=== PATIENT | female | born 1940 | race Caucasian/White ===

== ENCOUNTER 2017-06-30 10:14 | Observation (INO) | payer MEDICARE, OTHER ==
[2017-06-30] MEDS ORDERED: NS 0.9% 1000 ML* 1,000 ML IV ONE (10:50)
[2017-06-30 11:01] LABS: Hematocrit 38 % (35-47); Hemoglobin 12.8 g/dl (12.0-16.0); Mean Corpuscular HGB Conc 34 g/dl (31-36); Mean Corpuscular Hemoglobin 29 pg (27-31); Mean Corpuscular Volume 87 fL (80-97); Mean Platelet Volume 7 um3 (7.4-10.4); Red Blood Count 4.35 10^6/ul (4.0-5.4); Red Cell Distribution Width 16 % (10.5-15); White Blood Count 5.5 10^3/ul (3.5-10.8)
[2017-06-30 11:15] LABS: Albumin 3.9 g/dL (3.2-5.2); BUN/Creatinine Ratio 24.6 (8-20); Calcium 10.2 mg/dL (8.6-10.3); EGFR African American 113.7 (>60); EGFR Non-African American 88.4 (>60); Globulin 2.6 g/dL (2-4); Magnesium 1.9 mg/dL (1.9-2.7); Potassium 3.1 mmol/L (3.5-5.0); Total Bilirubin 0.6 mg/dL (0.2-1.0); Total Protein 6.5 g/dL (6.4-8.9)
[2017-06-30 11:16] LABS: Troponin I 0.01 ng/mL (<0.04)
[2017-06-30 11:49] LABS: TSH (Thyroid Stimulating Horm) 0.57 mcIU/mL (0.34-5.60)
[2017-06-30] MEDS ORDERED: Potassium Chlor TAB* 20 MEQ TAB.ER PO ONE (11:50)
--- NOTE | 2017-06-30 11:50 | RAD ---
Indication: Fall, head injury. Syncopal episode. Comparison: No relevant prior exams available on the [facility] PACS for comparison. Technique: Noncontrast CT vertex of skull through foramen magnum. Report: Mild prominence of the cerebral sulci and cerebellar fissures reflecting involutional change. Unremarkable ventricles and basal cisterns. Negative for [place] matter white matter obscuration, intra or extra-axial hemorrhage, or mass effect. Unremarkable orbital contents. Negative for calvarial or skull base fracture or suspicious focal osseous lesion. Clear visualized paranasal sinuses and mastoid air spaces. Mild edema at the LEFT posterolateral scalp without significant loculated scalp hematoma. IMPRESSION: 1. No CT evidence for traumatic brain injury or acute intracranial process. 2. Mild LEFT posterior lateral scalp swelling without significant loculated hematoma. 3. Mild involutional change.
--- NOTE | 2017-06-30 11:56 | RAD ---
Indication: Fall with head injury. Dizziness. Comparison: No relevant prior exams available on the [facility] PACS for comparison. Technique: Sitting AP and lateral chest views. Report: Costochondral calcifications noted. Elevated lung volumes and both diffuse mild prominence of the interstitial markings and patchy rarefaction of the mid to upper lung zone interstitial markings. No focal pulmonary lesion, compelling alveolar consolidation, pleural effusion, pneumothorax. Mild bilateral diaphragmatic eventration. The heart, pulmonary vasculature, and mediastinal contours are unremarkable. No thoracic fractures evident. IMPRESSION: Stigmata of potential obstructive lung disease. No acute pulmonary or cardiac process evident.
[2017-06-30] MEDS ORDERED: Ondansetron INJ* 2 MG/ML VIAL IV PRN (13:41)
[2017-06-30] MEDS ORDERED: NS 0.9% 1000 ML* 1,000 ML IV SCH (13:45)
--- NOTE | 2017-06-30 14:25 | RAD ---
INDICATION: Fall. COMPARISON: No relevant prior exams available on the [facility] PACS for comparison. TECHNIQUE: Multidetector CT images foramen magnum to lung apices without contrast. Multiplanar reformation. REPORT: 3 mm degenerative C4-C5 anterolisthesis. Negative for facet subluxation at any level. Negative for paravertebral hematoma. Negative for vertebral body or posterior element fracture. 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 Disc space narrowing is advanced from C4-C5 through C6-C7. Facet joint ankylosis at C4-C5 bilaterally. IMPRESSION: Negative for traumatic cervical spine injury.
--- NOTE | 2017-06-30 14:45 | RAD ---
INDICATION: Fall. Loss of consciousness. Hematoma at the LEFT hip/thigh. COMPARISON: No relevant prior exams available on the [facility] [place] for comparison. TECHNIQUE: Multidetector CT images were obtained from the lung bases to the ischial tuberosities. Evaluation of the viscera is limited without IV contrast. Multiplanar reformation. REPORT: Low suspicion 3 mm subpleural nodule at the lateral basal segment of the LEFT lower lobe. Negative for pleural effusions. Post cholecystectomy. Negative for biliary dilatation or focal hepatic lesions. Unremarkable pancreas and spleen. Negative for CT abnormality of the upper GI or small bowel. While the appendix is not discretely visualized, there is no inflammatory change in the right lower quadrant or region of the tip of the cecum to suggest presence of an acute inflammatory process. Moderately severe diverticulosis of the sigmoid colon without findings of diverticulitis. Negative for ascites, free air, or significant hernias. Normal adrenal glands. Negative for nephrolithiasis or hydronephrosis. Unremarkable nondilated ureters and moderately distended urinary bladder. Calcified fibroids at the uterus. Unremarkable adnexal regions. Negative for lymphadenopathy. Mild atherosclerotic calcification of normal diameter abdominal aorta and iliac arteries. Physiologic partial distention of the IVC. LEFT posterior lateral thigh loculated subcutaneous tissue plane hematoma measuring up to 4.6 x 6.4 by 5.1 cm. Surrounding infiltrative hematoma/edema. Resulting mild mass effect on the subjacent skeletal musculature. No additional soft tissue plane hematoma evident. Negative for lumbar sacral spine, pelvis, or proximal femur fracture. 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 Grade 1 degenerative L4-L5 anterolisthesis. Associated mild to moderate acquired central canal stenosis at L2-L3, moderate acquired central canal stenosis at L3-L4, and moderately severe acquired central canal stenosis at L4-L5. IMPRESSION: 1. No abdominal pelvic visceral injury within limits of noncontrast CT. 2. LEFT posterior lateral thigh loculated subcutaneous tissue plane hematoma measuring up to 4.6 x 6.4 by 5.1 cm. Surrounding infiltrative hematoma/edema. Resulting mild mass effect on the subjacent skeletal musculature. 3. Negative for lumbar sacral spine, pelvis, or proximal femur fracture.
[2017-06-30 15:54] LABS: Urine Bacteria Absent (Absent); Urine Bilirubin Negative (Negative); Urine Glucose Negative (Negative); Urine Nitrite Negative (Negative)
--- NOTE | 2017-06-30 17:09 | ED ---
IIsiah Tecjoon, scribed for Ramin Major MD on 06/30/17 at 1709 . Adult Trauma - HPI Summary HPI Summary: This patient is a 77 year old female presenting to [facility] accompanied by with a chief complaint of mechanical fall from "last 4-5 steps" in a set of stairs at approximately 1015 this morning. Pt reportedly hit head on fall. The patient rates the pain 0/10 in severity. Symptoms aggravated and alleviated by nothing. Patient reports LOC (about 3 minutes) s/p fall, confusion , dizziness, and lightheadedness. Patient denies CP, ENCISO, blurred vision, palpitations, SOB. Pt also denies diarrhea and constipation. Pts denies diaphoresis. - History of Current Complaint Hx Obtained From: Patient, Family/Pe Electrical Engineer - Mechanism of Injury: Fall - From "last 4-5 steps of stairs" Loss of Consciousness: dazed Onset/Duration: Started Hours Ago Current Severity: None Pain Intensity: 0 Pain Scale Used: 0-10 Numeric Location: Head Associated Signs & Symptoms: Negative: SOB, Chest Pain <Mateo Joyce - Last Filed: 06/30/17 12:18> - HPI Summary HPI Summary: This patient is a 77 year old female presenting to [facility] accompanied by with a chief complaint of mechanical fall from "last 4-5 steps" in a set of stairs at approximately 1015 this morning. Pt reportedly hit head on fall. The patient rates the pain 0/10 in severity. Symptoms aggravated and alleviated by nothing. Patient reports LOC (about 3 minutes) s/p fall, confusion , dizziness, and lightheadedness. Patient denies CP, ENCISO, blurred vision, palpitations, SOB. Pt also denies diarrhea and constipation. Pts denies diaphoresis. - History of Current Complaint Hx Obtained From: Patient, Family/Pe Electrical Engineer - Mechanism of Injury: Fall - From "last 4-5 steps of stairs" Loss of Consciousness: dazed Onset/Duration: Started Hours Ago Current Severity: None Pain Intensity: 0 Pain Scale Used: 0-10 Numeric Location: Head Associated Signs & Symptoms: Negative: SOB, Chest Pain <Ramin Major - Last Filed: 06/30/17 17:09> - History of Current Complaint Chief Complaint: EDGeneral Stated Complaint: FALL/HEAD INJURY Time Seen by Provider: 06/30/17 10:36 - Allergy/Home Medications Allergies/Adverse Reactions: Allergies Allergy/AdvReac Type Severity Reaction Status Date / Time No Known Allergies Allergy Verified 09/20/15 06:56 PMH/Surg Hx/FS Hx/Imm Hx Previously Healthy: No Endocrine/Hematology History: Reports: Hx Thyroid Disease Cardiovascular History: Reports: Hx Hypertension Denies: Hx Pacemaker/ICD, Other Cardiovascular Problems/Disorders Respiratory History: Denies: Other Respiratory Problems/Disorders GI History: Denies: Other GI Disorders Musculoskeletal History: 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, HANDS Denies: Other Musculoskeletal History Sensory History: Reports: Hx Cataracts - BILATERAL, Hx Contacts or Glasses - GLASSES Denies: Hx Hearing Aid Opthamlomology History: Reports: Hx Cataracts - BILATERAL, Hx Contacts or Glasses - GLASSES Psychiatric History: Denies: Hx Panic Disorder - Cancer History Hx Chemotherapy: No Hx Radiation Therapy: No - Surgical History Surgery Procedure, Year, and Place: [id number]; cataracts bilat; hammertoe right foot Hx Anesthesia Reactions: No Infectious Disease History: No Infectious Disease History: Reports: Traveled Outside the [place] in Last 30 Days - Family History Known Family History: Positive: Seizure Disorder Negative: Diabetes - Social History Alcohol Use: Weekly Alcohol Amount: 2-3 GLASSES OF WINE PER WEEK Substance Use Type: Reports: None Smoking Status (MU): Never Smoked Tobacco Have You Smoked in the Last Year: No <Mateo Joyce - Last Filed: 06/30/17 12:18> Previously Healthy: No Endocrine/Hematology History: Reports: Hx Thyroid Disease Cardiovascular History: Reports: Hx Hypertension Denies: Hx Pacemaker/ICD, Other Cardiovascular Problems/Disorders Respiratory History: Denies: Other Respiratory Problems/Disorders GI History: Denies: Other GI Disorders Musculoskeletal History: 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, HANDS Denies: Other Musculoskeletal History Sensory History: Reports: Hx Cataracts - BILATERAL, Hx Contacts or Glasses - GLASSES Denies: Hx Hearing Aid Opthamlomology History: Reports: Hx Cataracts - BILATERAL, Hx Contacts or Glasses - GLASSES Psychiatric History: Denies: Hx Panic Disorder - Cancer History Hx Chemotherapy: No Hx Radiation Therapy: No - Surgical History Surgery Procedure, Year, and Place: [id number]; cataracts bilat; hammertoe right foot Hx Anesthesia Reactions: No Infectious Disease History: No Infectious Disease History: Reports: Traveled Outside the [place] in Last 30 Days - Family History Known Family History: Positive: Seizure Disorder Negative: Diabetes - Social History Alcohol Use: Weekly Alcohol Amount: 2-3 GLASSES OF WINE PER WEEK Substance Use Type: Reports: None Smoking Status (MU): Never Smoked Tobacco Have You Smoked in the Last Year: No <Ramin Major - Last Filed: 06/30/17 17:09> Review of Systems Negative: Skin Diaphoresis Negative: Blurred Vision Negative: Palpitations, Chest Pain Negative: Shortness Of Breath Positive: Other. Negative: Diarrhea Positive: other - neg: constipation Neurological: Other - Dizziness, Lightheadedness, LOC s/p fall Negative: Headache All Other Systems Reviewed And Are Negative: Yes <Mateo Joyce - Last Filed: 06/30/17 12:18> Negative: Skin Diaphoresis Negative: Blurred Vision Negative: Palpitations, Chest Pain Negative: Shortness Of Breath Positive: Other. Negative: Diarrhea Positive: other - neg: constipation Neurological: Other - Dizziness, Lightheadedness, LOC s/p fall Negative: Headache All Other Systems Reviewed And Are Negative: Yes <Ramin Major - Last Filed: 06/30/17 17:09> Physical Exam - Summary Physical Exam Summary: VITAL SIGNS: Reviewed. GENERAL: Patient is a well-developed and nourished (MALE OR FEMALE) who is lying comfortable in the stretcher. Patient is not in any acute respiratory distress. HEAD AND FACE: No signs of trauma. No ecchymosis, hematomas or skull depressions. No sinus tenderness. EYES: PERRLA, EOMI x 2, No injected conjunctiva, no nystagmus. EARS: Hearing grossly intact. Ear canals and tympanic membranes are within normal limits. MOUTH: Oropharynx within normal limits. NECK: Supple, trachea is midline, no adenopathy, no JVD, no carotid bruit, no c- spine tenderness, neck with full ROM. CHEST: Symmetric, no tenderness at palpation LUNGS: Clear to auscultation bilaterally. No wheezing or crackles. CVS: Regular rate and rhythm, S1 and S2 present, no murmurs or gallops appreciated. ABDOMEN: Soft, non-tender. No signs of distention. No rebound no guarding, and no masses palpated. Bowel sounds are normal. EXTREMITIES: FROM in all major joints, no edema, no cyanosis or clubbing. NEURO: Alert and oriented x 3. No acute neurological deficits. Speech is normal and follows commands. SKIN: Dry and warm GCS: 15 Triage Information Reviewed: Yes Vital Signs On Initial Exam: Initial Vitals BP 142/99 06/30/17 10:23 Vital Signs Reviewed: Yes - [place] Coma Scale Best Eye Response: 4 - Spontaneous Best Motor Response: 6 - Obeys Commands Best Verbal Response: 5 - Oriented Coma Scale Total: 15 <Mack Joycejose alejandro - Last Filed: 06/30/17 12:18> - Summary Physical Exam Summary: VITAL SIGNS: Reviewed. GENERAL: Patient is a well-developed and nourished (MALE OR FEMALE) who is lying comfortable in the stretcher. Patient is not in any acute respiratory distress. HEAD AND FACE: No signs of trauma. No ecchymosis, hematomas or skull depressions. No sinus tenderness. EYES: PERRLA, EOMI x 2, No injected conjunctiva, no nystagmus. EARS: Hearing grossly intact. Ear canals and tympanic membranes are within normal limits. MOUTH: Oropharynx within normal limits. NECK: Supple, trachea is midline, no adenopathy, no JVD, no carotid bruit, no c- spine tenderness, neck with full ROM. CHEST: Symmetric, no tenderness at palpation LUNGS: Clear to auscultation bilaterally. No wheezing or crackles. CVS: Regular rate and rhythm, S1 and S2 present, no murmurs or gallops appreciated. ABDOMEN: Soft, non-tender. No signs of distention. No rebound no guarding, and no masses palpated. Bowel sounds are normal. EXTREMITIES: FROM in all major joints, no edema, no cyanosis or clubbing. NEURO: Alert and oriented x 3. No acute neurological deficits. Speech is normal and follows commands. SKIN: Dry and warm GCS: 15 Triage Information Reviewed: Yes Vital Signs On Initial Exam: Initial Vitals BP 142/99 06/30/17 10:23 Vital Signs Reviewed: Yes - [place] Coma Scale Best Eye Response: 4 - Spontaneous Best Motor Response: 6 - Obeys Commands Best Verbal Response: 5 - Oriented Coma Scale Total: 15 <Ramin Major - Last Filed: 06/30/17 17:09> Diagnostics - Vital Signs Vital Signs Temp Pulse Resp BP Pulse Ox 06/30/17 10:32 80 137/86 100 06/30/17 10:30 96 137/86 06/30/17 10:24 97.9 F 81 13 142/99 100 06/30/17 10:23 142/99 - Laboratory Lab Results: Lab Results 06/30/17 Range/Units 10:44 WBC 5.5 (3.5-10.8) 10^3/ul RBC 4.35 (4.0-5.4) 10^6/ul Hgb 12.8 (12.0-16.0) g/dl Hct 38 (35-47) % MCV 87 (80-97) fL MCH 29 (27-31) pg MCHC 34 (31-36) g/dl RDW 16 H (10.5-15) % Plt Count 174 (150-450) 10^3/ul MPV 7 L (7.4-10.4) um3 Neut % (Auto) 63.7 (38-83) % Lymph % (Auto) 25.2 (25-47) % [place] % (Auto) 7.5 (1-9) % Eos % (Auto) 2.8 (0-6) % Baso % (Auto) 0.8 (0-2) % Absolute Neuts (auto) 3.5 (1.5-7.7) 10^3/ul Absolute Lymphs (auto) 1.4 (1.0-4.8) 10^3/ul Absolute Monos (auto) 0.4 (0-0.8) 10^3/ul Absolute Eos (auto) 0.2 (0-0.6) 10^3/ul Absolute Basos (auto) 0 (0-0.2) 10^3/ul Absolute Nucleated RBC 0 10^3/ul Nucleated RBC % 0 Result Diagrams: 06/30/17 10:44 06/30/17 10:44 Lab Statement: Any lab studies that have been ordered have been reviewed, and results considered in the medical decision making process. - Radiology CXR Radiology Interpretation Completed By: Radiologist - Stigmata of potential obstructive lung disease. No acute pulmonary or cardiac process evident.ED physician has reviewed this radiology report - CT CT Brain CT Interpretation Completed By: Radiologist - 1. No CT evidence for traumatic brain injury or acute intracranial process. 2. Mild LEFT posterior lateral scalp swelling without significant loculated hematoma. 3. Mild involutional change. ED physician has reviewed this radiology report. - EKG 1101 Cardiac Rate: NL EKG Rhythm: Sinus Rhythm - 76 BPM Ectopy: PVCs EKG Interpretation: Normal [place] <Mateo Joyce - Last Filed: 06/30/17 12:18> - Vital Signs Vital Signs Temp Pulse Resp BP Pulse Ox 06/30/17 10:32 80 137/86 100 06/30/17 10:30 96 137/86 06/30/17 10:24 97.9 F 81 13 142/99 100 06/30/17 10:23 142/99 - Laboratory Lab Results: Lab Results 06/30/17 Range/Units 10:44 WBC 5.5 (3.5-10.8) 10^3/ul RBC 4.35 (4.0-5.4) 10^6/ul Hgb 12.8 (12.0-16.0) g/dl Hct 38 (35-47) % MCV 87 (80-97) fL MCH 29 (27-31) pg MCHC 34 (31-36) g/dl RDW 16 H (10.5-15) % Plt Count 174 (150-450) 10^3/ul MPV 7 L (7.4-10.4) um3 Neut % (Auto) 63.7 (38-83) % Lymph % (Auto) 25.2 (25-47) % [place] % (Auto) 7.5 (1-9) % Eos % (Auto) 2.8 (0-6) % Baso % (Auto) 0.8 (0-2) % Absolute Neuts (auto) 3.5 (1.5-7.7) 10^3/ul Absolute Lymphs (auto) 1.4 (1.0-4.8) 10^3/ul Absolute Monos (auto) 0.4 (0-0.8) 10^3/ul Absolute Eos (auto) 0.2 (0-0.6) 10^3/ul Absolute Basos (auto) 0 (0-0.2) 10^3/ul Absolute Nucleated RBC 0 10^3/ul Nucleated RBC % 0 Result Diagrams: 06/30/17 10:44 06/30/17 10:44 Lab Statement: Any lab studies that have been ordered have been reviewed, and results considered in the medical decision making process. - Radiology CXR Radiology Interpretation Completed By: Radiologist - Stigmata of potential obstructive lung disease. No acute pulmonary or cardiac process evident.ED physician has reviewed this radiology report - CT CT Brain CT Interpretation Completed By: Radiologist - 1. No CT evidence for traumatic brain injury or acute intracranial process. 2. Mild LEFT posterior lateral scalp swelling without significant loculated hematoma. 3. Mild involutional change. ED physician has reviewed this radiology report. - EKG 1101 Cardiac Rate: NL EKG Rhythm: Sinus Rhythm - 76 BPM Ectopy: PVCs EKG Interpretation: Normal [place] <Ramin Major - Last Filed: 06/30/17 17:09> Adult Trauma Course/Dx <Mateo Joyce - Last Filed: 06/30/17 12:18> - Diagnoses Differential Diagnosis/HQI/PQRI: Positive: Other - CVA, TIA, Seizure, <Ramin Major - Last Filed: 06/30/17 17:09> - Diagnoses Provider Diagnoses: Syncope Discharge <Mateo Joyce - Last Filed: 06/30/17 12:18> <Ramin Major - Last Filed: 06/30/17 17:09> - Discharge Plan Condition: Stable Disposition: ADMITTED TO [facility] documentation as recorded by the Isiah dowling Tecjoon accurately reflects the service I personally performed and the decisions made by Pedrito cameron Walter, MD.
--- NOTE | 2017-06-30 18:22 | ED ---
Julita Trent Alfonso, scribed for Ramin Major MD on 06/30/17 at 1048 . Adult Trauma - HPI Summary HPI Summary: This patient is a 77 year old F BIBA to [facility] accompanied by s/p a fall earlier today. reports a long set of stairs in [place] and she fell down the last 4-5 steps. The patient rates the pain 0/10 in severity. Symptoms aggravated by nothing. Patient reports LOC (s/p fall for approximately 3 minutes), and lightheadedness. reports confusion, pallor. Patient denies headache, blurred vision, CP, palpitations, SOB, weakness, near syncope, head trauma, abdominal pain, diarrhea, and constipation. denies diaphoresis. - History of Current Complaint Chief Complaint: EDGeneral Stated Complaint: FALL/HEAD INJURY Time Seen by Provider: 06/30/17 10:36 Hx Obtained From: Patient Mechanism of Injury: Fall Loss of Consciousness: prolonged (minutes) - 3 Onset/Duration: Traumatic Onset of Pain: Prior to Arrival Pain Intensity: 0 Pain Scale Used: 0-10 Numeric Aggravating Factor(s): Nothing Associated Signs & Symptoms: Positive: Other: - LOC (s/p fall for approximately 3 minutes), and lightheadedness. reports confusion, pallor. Patient denies headache, blurred vision, CP, palpitations, SOB, weakness, near syncope, head trauma, abdominal pain, diarrhea, and constipation. denies diaphoresis. - Allergy/Home Medications Allergies/Adverse Reactions: Allergies Allergy/AdvReac Type Severity Reaction Status Date / Time No Known Allergies Allergy Verified 09/20/15 06:56 Home Medications: Home Medications Iron 1 tab PO DAILY 06/30/17 [History Confirmed 06/30/17] PMH/Surg Hx/FS Hx/Imm Hx Endocrine/Hematology History: Reports: Hx Thyroid Disease Cardiovascular History: Reports: Hx Hypertension Denies: Hx Pacemaker/ICD, Other Cardiovascular Problems/Disorders Respiratory History: Denies: Other Respiratory Problems/Disorders GI History: Denies: Other GI Disorders Musculoskeletal History: 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, HANDS Denies: Other Musculoskeletal History Sensory History: Reports: Hx Cataracts - BILATERAL, Hx Contacts or Glasses - GLASSES Denies: Hx Hearing Aid Opthamlomology History: Reports: Hx Cataracts - BILATERAL, Hx Contacts or Glasses - GLASSES Psychiatric History: Denies: Hx Panic Disorder - Cancer History Hx Chemotherapy: No Hx Radiation Therapy: No - Surgical History Surgery Procedure, Year, and Place: GALLBLADDER-76; cataracts bilat; hammertoe right foot Hx Anesthesia Reactions: No Infectious Disease History: No Infectious Disease History: Reports: Traveled Outside the [place] in Last 30 Days - Family History Known Family History: Positive: Cardiac Disease - [place] brothers, Other - CVA - Social History Alcohol Use: Weekly Alcohol Amount: 2-3 GLASSES OF WINE PER WEEK Hx Substance Use: No Substance Use Type: Reports: None Hx Tobacco Use: No Smoking Status (MU): Never Smoked Tobacco Have You Smoked in the Last Year: No Review of Systems Negative: Skin Diaphoresis Negative: Blurred Vision Negative: Palpitations, Chest Pain Negative: Shortness Of Breath Positive: Other - Negative constipation. Negative: Abdominal Pain, Diarrhea Positive: Other - fall Positive: Other - Pallor Neurological: Other - LOC (s/p fall for approximately 3 minutes), lightheadedness, confusion; negative near syncope, head trauma Negative: Headache, Weakness All Other Systems Reviewed And Are Negative: Yes Physical Exam - Summary Physical Exam Summary: VITAL SIGNS: Reviewed. GENERAL: Patient is a well-developed and nourished female who is lying comfortable in the stretcher. Patient is not in any acute respiratory distress. HEAD AND FACE: No signs of trauma. No ecchymosis, hematomas or skull depressions. No sinus tenderness. EYES: PERRLA, EOMI x 2, No injected conjunctiva, no nystagmus. EARS: Hearing grossly intact. Ear canals and tympanic membranes are within normal limits. MOUTH: Oropharynx within normal limits. NECK: Supple, trachea is midline, no adenopathy, no JVD, no carotid bruit, no c- spine tenderness, neck with full ROM. CHEST: Symmetric, no tenderness at palpation LUNGS: Clear to auscultation bilaterally. No wheezing or crackles. CVS: Regular rate and rhythm, S1 and S2 present, no murmurs or gallops appreciated. ABDOMEN: Soft, non-tender. No signs of distention. No rebound no guarding, and no masses palpated. Bowel sounds are normal. EXTREMITIES: FROM in all major joints, no edema, no cyanosis or clubbing. NEURO: Alert and oriented x 3. No acute neurological deficits. Speech is normal and follows commands. SKIN: Dry and warm Triage Information Reviewed: Yes Vital Signs On Initial Exam: Initial Vitals BP 142/99 06/30/17 10:23 Vital Signs Reviewed: Yes - [place] Coma Scale Best Eye Response: 4 - Spontaneous Best Motor Response: 6 - Obeys Commands Best Verbal Response: 5 - Oriented Coma Scale Total: 15 Diagnostics - Vital Signs Vital Signs Temp Pulse Resp BP Pulse Ox 06/30/17 10:32 80 137/86 100 06/30/17 10:30 96 137/86 06/30/17 10:24 97.9 F 81 13 142/99 100 06/30/17 10:23 142/99 - Laboratory Result Diagrams: 06/30/17 10:44 06/30/17 10:44 Lab Statement: Any lab studies that have been ordered have been reviewed, and results considered in the medical decision making process. - Radiology CXR Radiology Interpretation Completed By: Radiologist - Stigmata of potential obstructive lung disease. No acute pulmonary or cardiac process evident. ED physician has reviewed this radiology report. - CT Brain CT Interpretation Completed By: Radiologist - 1. No CT evidence for traumatic brain injury or acute intracranial process. 2. Mild LEFT posterior lateral scalp swelling without significant loculated hematoma. 3. Mild involutional change. ED physician has reviewed this radiology report. - EKG 1101 Cardiac Rate: NL EKG Rhythm: Sinus Rhythm - 76 BPM Ectopy: PVCs EKG Interpretation: Normal axis. Adult Trauma Course/Dx - Course Assessment/Plan: This patient is a 77 year old F BIBA to [facility] accompanied by s/p a fall earlier today. reports a long set of stairs in [place] and she fell down the last 4-5 steps. The patient rates the pain 0/10 in severity. Symptoms aggravated by nothing. Patient reports LOC (s/p fall for approximately 3 minutes), and lightheadedness. reports confusion, pallor. Patient denies headache, blurred vision, CP, palpitations, SOB, weakness , near syncope, head trauma, abdominal pain, diarrhea, and constipation. denies diaphoresis. Test results with no significant abnormalities except for potassium of 3.1 for what she was given potassium chloride. Test results with no significant abnormalities except for potassium of 3.1 for what she was given potassium chloride. An EKG reveals Sinus Rhythm at 76 BPM with normal axis and PVCs. CXR reveals, per radiologist, Stigmata of potential obstructive lung disease. No acute pulmonary or cardiac process evident. ED physician has reviewed this radiology report. CT Brain reveals, per radiologist , 1. No CT evidence for traumatic brain injury or acute intracranial process. 2. Mild LEFT posterior lateral scalp swelling without significant loculated hematoma. 3. Mild involutional change. ED physician has reviewed this radiology report. Since the patient had a true syncopal episode with positive LOC, I consulted Dr. Rosario (hospitalist) at 1340 who agrees to admit. The patient is agreeable with this plan. The patient is hemodynamically stable, alert and oriented x3. - Diagnoses Differential Diagnosis/HQI/PQRI: Positive: Other - CVA, TIA, seizure. Provider Diagnoses: Syncope - Physician Notifications Discussed Care Of Patient With: Sue Rosario Time Discussed With Above Provider: 13:40 Instructed by Provider To: Other - Consulted Dr. Rosario (hospitalist) at 1340 who agrees to admit. Discharge - Discharge Plan Condition: Stable Disposition: ADMITTED TO [facility] documentation as recorded by the Julita dowling Alfonso accurately reflects the service I personally performed and the decisions made by me, Ramin Major MD.
[2017-06-30 18:42] LABS: Hematocrit 30 % (35-47); Hemoglobin 10.5 g/dl (12.0-16.0)
--- NOTE | 2017-06-30 20:35 | HP ---
CC: Dr. Perry* HISTORY AND PHYSICAL: DATE OF ADMISSION: 06/30/17 PRIMARY CARE PROVIDER: Dr. Perry. ATTENDING PHYSICIAN WHILE IN THE HOSPITAL: Dr. Sue Rosario * (report dictated by Franky Finney NP). CHIEF COMPLAINT: Syncope. HISTORY OF PRESENT ILLNESS: Ms. Diaz is a 77-year-old female patient. She has a history of hypothyroidism, arthritis, hypertension, hyperlipidemia, melanoma. She comes into the ER today stating that she was at [employer]ologist practice today and she was walking down some stairs to go get her choir [employer] and the last thing she remembers was taking one step and next thing she knew the EMS person was over there stating "we are taking you to the hospital." She denied having any lightheadedness with this episode. She did have some this morning and she frequently has lightheadedness when she gets up in the morning, but she takes her time and it usually subsides. She says yesterday she really did not drink much fluid. She says maybe she was a little dehydrated. She had no chest pain prior to or after. She had no abdominal pain. She says that when she came to initially, she did not really know where she was, but then few minutes after, she says that she recognized her and knew that she was getting in the ambulance. She does remember the ambulance ride here. She had no again chest pain prior to or after, no abdominal pain. She said the only pain she has now is in her left thigh and that she says it feels very swollen. She denies having any recent vomiting or diarrhea. No fevers. No chills. No change in medications that she can recall. She was evaluated here today. There was concern because of syncopal episode and we were asked to evaluate for admission. PAST MEDICAL HISTORY: Significant for: 1. Hypertension. 2. Hyperlipidemia. 3. Hypothyroidism. 4. Melanoma. 5. Arthritis. PAST SURGICAL HISTORY: 1. The patient has had bilateral total knee replacement. 2. She has had laparoscopic cholecystectomy. 3. She has had hammertoe surgery. 4. She has had vein stripping. MEDICATIONS: The home meds according to the list that was provided include: 1. Iron 1 tablet p.o. daily. 2. Caltrate 630 mg p.o. b.i.d. 3. B complex 1 tablet daily. 4. Aspirin 81 mg daily. 5. Losartan/hydrochlorothiazide 1 tablet p.o. daily. 6. Synthroid 1 tab p.o. daily. 7. Simvastatin 10 mg p.o. at bedtime. ALLERGIES TO MEDICATIONS: Include no known drug allergies. FAMILY HISTORY: Mother had a history of CVA. Father's history is unknown; he when she was 5. SOCIAL HISTORY: The patient does not smoke. She does not drink alcohol. Surrogate decision maker is her , Parmjit. REVIEW OF SYSTEMS: There is no documented fever. She denied having any significant weight change. There was no double vision. She denies having any ear discharge. There was no rhinorrhea. No sore throat. No thyroid enlargement. She denied having any chest pain. There was no orthopnea, there was no nocturnal dyspnea. There was no abdominal pain. No nausea, no vomiting. There was loss of consciousness. No pruritus and no skin ulcerations. Review of 14 systems completed, all others negative. PHYSICAL EXAMINATION GENERAL: At this time, Ms. Diaz is a 77-year-old female patient. She appears to be well-nourished, well-developed. She does not appear to be in any acute distress. VITAL SIGNS: Blood pressure 137/86 with a pulse of 87, respirations 18, O2 sat 100%, temperature 97.9. HEENT: Head: Atraumatic, normocephalic. Eyes: EOMs intact. Sclerae anicteric, not pale. Throat: Oral mucosa appears to be moist. No oropharyngeal erythema. NECK: Supple. LUNGS: Clear to auscultation bilaterally. No wheezes, rales, or rhonchi. HEART: Sounds S1, S2 . Regular rate and rhythm. No murmurs, rubs, or gallops. ABDOMEN: Soft, flat, nontender. Bowel sounds present. EXTREMITIES: Pulses 2+ throughout. She is moving all 4 extremities with 5/5 strength. NEUROLOGIC: The patient is awake and alert. She is oriented x3. Her tongue is midline. 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 No gross focal deficits. SKIN: Intact. She does have a hematoma noted to the left thigh and a hematoma to her scalp on the occipital area. DIAGNOSTIC STUDIES/LAB DATA: WBC 5.5, RBC of 4.65, hemoglobin 12.8, hematocrit 38, platelet count of 174. Sodium 135, potassium was 3.1 which was replaced in the ER, chloride 102, bicarb 24, BUN 16, creatinine 0.65, glucose 128, lactate 1.1, calcium 10.2, mag 1.9. Total bili 0.6, AST 21, ALT 16, Troponin 0.01. BNP of 32. Albumin of 3.9. TSH of 0.57. She had imaging here in ED. Brain CT, impression: No CT evidence for traumatic brain injury or acute intracranial process. Mild left posterolateral scalp swelling without significant loculated hematoma. Mild involutional change. Chest x-ray showed stigmata of potential obstructive lung disease. No acute pulmonary or cardiac process evident. EKG obtained today. No previous for comparison, shows a normal sinus rhythm with the PVCs. No ST elevation or T-wave inversions were noted. Old medical records were reviewed. ASSESSMENT AND PLAN: Ms. Diaz is a 77-year-old female patient coming into the ED today with complaints of a syncopal episode. She did fall down 4 stairs , there was concern for syncope. She will be admitted under inpatient status for: 1. Syncope. At this point, the etiology is unclear. It could have been orthostasis, but she had no lightheadedness prior to the fall with the exception to this morning when she woke up which she normally has. She had no chest pain. No palpitations. She had no prodrome of symptoms and it does not seem like she had a prolonged postictal type state, she was not incontinent of urine, so I think seizure is less likely. Plan is to put her on telemetry, check orthostatic blood pressures. Check an echo. I will check bilateral carotid ultrasounds and I will get a CT of the neck because of the fall. She is not having any neck pain. We will make sure there is no underlying occult fracture. 2. Left thigh hematoma. She does have pain there and tenderness, but she is able to move the left hip and right hip with no pain. She has no pain to the knee or in the thigh area, but I would like to check a CT of the abdomen and pelvis to evaluate the size of the hematoma to make sure there is no occult pelvic fracture and the abdomen as well given the recent trauma. 3. Hypertension. We will continue her meds with the exception of hydrochlorothiazide, we will just continue the losartan. 4. Hypothyroidism. Continue Synthroid. 5. Hyperlipidemia. Statin therapy. 6. History of melanoma and arthritis. Follow with primary. 7. DVT prophylaxis. Because of the hematoma, just SCDs for the time being. 8. Code status. Full code. 9. Fluids, electrolytes, and nutrition. She will be placed on a regular diet. TIME SPENT: On the admission 60 minutes, greater than half the time spent face- to- face with the patient obtaining my history and physical, other half the time spent going over the plan of care with the patient and implementing plan of care. I did discuss plan of care with my attending, Dr. Rosario; she is in agreement. FRANKY FINNEY, ARMANDO [id number]/CPS #: [id number] LATISHA
[2017-06-30] MEDS ORDERED: Atorvastatin* 10 MG TAB PO SCH (21:00)
[2017-06-30] MEDS: Acetaminophen TAB* 325 MG PO PRN (21:18)
[2017-07-01 01:14] LABS: Hematocrit 32 % (35-47)
[2017-07-01] MEDS ORDERED: Levothyroxine TAB* 125 MCG TAB PO SCH (06:00)
[2017-07-01 06:49] LABS: Hematocrit 31 % (35-47); Hemoglobin 10.6 g/dl (12.0-16.0); Mean Corpuscular HGB Conc 35 g/dl (31-36); Mean Corpuscular Hemoglobin 30 pg (27-31); Mean Corpuscular Volume 86 fL (80-97); Mean Platelet Volume 7 um3 (7.4-10.4); Red Blood Count 3.54 10^6/ul (4.0-5.4); Red Cell Distribution Width 16 % (10.5-15); White Blood Count 4.6 10^3/ul (3.5-10.8)
[2017-07-01 07:03] LABS: BUN/Creatinine Ratio 19.6 (8-20); Calcium 9.3 mg/dL (8.6-10.3); EGFR African American 150.4 (>60); EGFR Non-African American 116.9 (>60); Potassium 3.5 mmol/L (3.5-5.0)
[2017-07-01] MEDS: Acetaminophen TAB* 325 MG PO PRN (08:51)
[2017-07-01] MEDS ORDERED: Losartan TAB* 25 MG PO SCH (09:00)
--- NOTE | 2017-07-01 12:00 | ECHO ---
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 Technical Comments: The study quality is good. Completed at 0925. Left Ventricle: The left ventricular chamber size is decreased. Global left ventricular wall motion and contractility are within normal limits. There is normal left ventricular systolic function. The estimated ejection fraction is 55-60%. Abnormal left ventricular diastolic function is observed. Left Atrium: The left atrial chamber size is normal. Right Ventricle: The right ventricular cavity size is normal. The right ventricular global systolic function is normal. Right Atrium: The right atrial cavity size is normal. Aortic Valve: The aortic valve is trileaflet. There is no evidence of aortic regurgitation. There is no evidence of aortic stenosis. Mitral Valve: The mitral valve leaflets are mildly thickened. There is a trace of mitral regurgitation. There is no evidence of mitral stenosis. Tricuspid Valve: The tricuspid valve leaflets are normal. There is trace to mild tricuspid regurgitation. No pulmonary hypertension is noted. There is no tricuspid stenosis. Pulmonic Valve: The pulmonic valve structure is not well visualized. Pericardium: The pericardium appears normal. Aorta: The ascending aorta is not well visualized. There is no dilatation of the aortic arch. There is no dilation of the aortic root. Pulmonary Artery: The main pulmonary artery appears normal. Venous: The venous system is not well visualized. Conclusions Global left ventricular wa The estimated ejection fraction is 55-60%. The right ventricular global systolic function is normal. There is no evidence of aortic stenosis. There is a trace of mitral regurgitation. There is trace to mild tricuspid regurgitation. The pericardium appears normal. Measurements Name Value Normal Range RVIDd (AP) 2D 2.6 cm (0.9 - 2.6) RVDdMajor (2D) 2.8 cm (2.2 - 4.4) RAd ISD 4CH 4.9 cm (3.4 - 4.9) RA (A4C)W 2.5 cm (2.9 - 4.6) IVSd (2D) 1 cm (0.6 - 1) LVPWd (2D) 0.9 cm (0.6 - 1) LVIDd (2D) 3.3 cm (3.6 - 5.4) LVIDs (2D) 2.5 cm - LV FS (2D) 26 % (25 - 45) Aortic Annulus 1.8 cm (1.4 - 2.6) Ao root diameter (2D) 3.1 cm (2.1 - 3.5) Aortic arch 2.6 cm (1.8 - 3.4) Descending Ao 0.4 cm - LA dimension (AP) 2D 3.3 cm (2.3 - 3.8) LAd ISD 4CH 5.6 cm (2.9 - 5.3) LA ISD 4CH W 4.1 cm (2.5 - 4.5) Name Value Normal Range LA ESV SP 4CH (A/L) 45 ml - LA ESV SP 2CH (A/L) 60 ml - LA ESV BP (A/L) 53 ml - LA ESV BP (A/L) index 29.87 ml/m2 - LA ESV SP 4CH (MOD) 42 ml - LA ESV SP 2CH (MOD) 53 ml - Name Value Normal Range MV E-wave Vmax 0.8 m/sec - MV deceleration time 223 msec - MV A-wave Vmax 1.2 m/sec - MV E:A ratio 0.65 ratio - LV septal e' Vmax 0.1 m/sec - LV lateral e' Vmax 0.06 m/sec - LV E:e' septal ratio 8 ratio - LV E:e' lateral ratio 13.33 ratio - Name Value Normal Range AV Vmax 1.7 m/sec - AV VTI 36.9 cm - AV peak gradient 11.68 mmHg - AV mean gradient 5.52 mmHg - LVOT Vmax 1.2 m/sec - LVOT VTI 27.7 cm - LVOT peak gradient 6.16 mmHg - LVOT mean gradient 2.55 mmHg - Name Value Normal Range TR Vmax 2.4 m/sec - TR peak gradient 23 mmHg - RAP 8 mmHg - RVSP 31 mmHg -
--- NOTE | 2017-07-01 13:51 | RAD ---
INDICATION: Syncopal episode. Arrhythmia. COMPARISON: No relevant prior exams available on the [facility] PACS for comparison. TECHNIQUE: Bilateral carotid duplex scan. Stenosis estimations reflect velocity criteria that have been correlated to angiographic stenosis calculations based on distal internal carotid diameter. REPORT: Irregular cardiac rhythm noted throughout the exam. RIGHT ICA: 110 cm/s peak systolic 36 cm/s end diastolic CCA: 102 cm/s peak systolic ICA/CCA peak systolic ratio: 1.08 Minimal noncalcific plaque at the RIGHT carotid bulb and proximal internal carotid artery. Normal spectral wave forms are present throughout. Antegrade flow in the right vertebral artery. LEFT ICA: 147 cm/s peak systolic 35 cm/s end diastolic CCA: 116 cm/s peak systolic ICA/CCA peak systolic ratio: 1.27 Minimal noncalcified plaque at the LEFT carotid bulb and proximal internal carotid artery. Normal spectral wave forms are present throughout. Antegrade flow in the left vertebral artery. IMPRESSION: 1. No evidence for hemodynamic significant carotid stenosis by NASCET criteria. Bilateral less than 50% and likely closer to 0% internal carotid artery stenosis. 2. Irregular cardiac rhythm noted. CPT II Codes: 3100F
[2017-07-01 14:07] VITALS: BP 118/66
--- NOTE | 2017-07-01 14:19 | DCNOTE ---
Subjective Date of Service: 07/01/17 Interval History: Patient seen and examined at bedside. Patient seen by PT and deemed independent. She states that she felt slightly dizzy during ambulation. Patient HR increase when orthostatics performed. SBP normal this AM prior to BP medication. Family History: Unchanged from Admission Social History: Unchanged from Admission Past Medical History: Unchanged from Admission Objective Active Medications: Acetaminophen (Tylenol Tab*) 650 mg PO Q4H PRN Atorvastatin Calcium (Lipitor*) 5 mg PO BEDTIME LINDA Sodium Chloride (Ns 0.9% 1000 Ml*) 1,000 mls @ 100 mls/hr IV PER RATE LINDA Levothyroxine Sodium (Synthroid Tab*) 125 mcg PO 0600 LINDA Losartan Potassium (Cozaar Tab*) 100 mg PO DAILY LINDA Ondansetron HCl (Zofran Inj*) 4 mg IV Q6H PRN Vital Signs Temp Pulse Resp BP Pulse Ox 98.2 F 88 16 118/66 98 07/01/17 11:07 07/01/17 11:07 07/01/17 11:07 07/01/17 11:07 07/01/17 11:07 Oxygen Devices in Use Now: None Appearance: sitting up in bed, NAD Eyes: No Scleral Icterus, PERRLA Ears/Nose/Mouth/Throat: NL Teeth, Lips, Gums Neck: NL Appearance and Movements; NL JVP Respiratory: Symmetrical Chest Expansion and Respiratory Effort, Clear to Auscultation Cardiovascular: NL Sounds; No Murmurs; No JVD, RRR Abdominal: NL Sounds; No Tenderness; No Distention Extremities: No Edema Skin: No Rash or Ulcers Neurological: Alert and Oriented x 3, NL Muscle Strength and Tone Lines/Tubes/Other Access: Clean, Dry and Intact Peripheral IV Nutrition: Taking PO's Result Diagrams: 07/01/17 06:22 07/01/17 06:22 Additional Lab and Data: . Assess/Plan/Problems-Billing Pt is a 77 y/o F hx of HTN and hypothyroidism who presented to the ER after a syncopal episode. - Patient Problems (1) Syncope (2) HTN (hypertension) (3) Hypothyroidism (4) DVT prophylaxis (5) Full code status Status and Disposition: OBV for syncope. Stable to be discharged home. See dictated discharge summary for detail regarding diagnoses listed above.
--- NOTE | 2017-07-02 03:56 | DS ---
CC: Dr. Perry * DISCHARGE SUMMARY: DATE OF ADMISSION: 06/30/17 DATE OF DISCHARGE: 07/01/17 PRIMARY CARE PHYSICIAN: Dr. Perry. ATTENDING PHYSICIAN: Dr. Bridgette Botello * (report dictated by Norman Vicente NP) PRIMARY DIAGNOSES: 1. Syncope. 2. Thigh hematoma. SECONDARY DIAGNOSES: 1. Hypertension. 2. Hyperlipidemia. 3. Hypothyroidism. 4. Melanoma. 5. Arthritis. STUDIES WHILE IN THE HOSPITAL: 1. On 06/30/17, CT of the brain without contrast. No CT evidence for traumatic brain injury or acute intracranial process. Mild left posterior lateral scalp swelling without significant loculated hematoma. Mild involutional change. 2. On 06/30/17, chest x-ray PA and lateral, stigmata of potential obstructive lung disease. No acute pulmonary or cardiac process evident. 3. CT scan of the abdomen and pelvis, 06/30/17. No abnormal pelvic visceral injury within limits of noncontrast CT. Left posterior lateral thigh loculated subcutaneous tissue, plain hematoma measuring 4.6 x 6.4 x 5.1 cm surrounding infiltrated hematoma and edema resulting in mild mass effect on the subadjacent skeletal musculature. Negative for lumbosacral spine, pelvis, or proximal femur fracture. 4. On 06/30/17, CT of the cervical spine. Negative for traumatic cervical spine injury. 5. Transthoracic echocardiogram, 07/01/17. Global left ventricular wall motion is in normal limits, estimated ejection fraction at 55% to 60%. Right ventricular global systolic function is normal. There is no evidence of aortic stenosis. There is trace mild mitral regurgitation. There is trace mild tricuspid regurgitation. The pericardium appears normal. MEDICATIONS AT THE TIME OF DISCHARGE: Changed medications: 1. Cozaar 100/25 mg half a tablet oral daily. 2. Potassium chloride 10 mEq oral daily. All the following medications are the medications the patient came in on: 1. Simvastatin 10 mg oral at bedtime. 2. Caltrate 630 mg oral twice daily. 3. B complex 1 tablet oral daily. 4. Synthroid 120 mcg oral daily. 5. Iron 1 tablet oral daily. The patient has been instructed to discontinue aspirin. HISTORY OF PRESENT ILLNESS AND HOSPITAL COURSE: Ms. Diaz is a 77-year-old female with a past medical history significant for hypothyroidism, hypertension , hyperlipidemia, and melanoma who presented to the emergency room on 06/30/17 after a syncopal episode while walking down the stairs after singing in her yazidi choir. The patient had felt lightheaded in the morning and stated she had not had much fluid that day. She has been standing for quite sometime during yazidi practice. The patient was admitted to the telemetry floor and monitored overnight. The patient had a carotid Doppler ultrasound, which showed no hemodynamically significant carotid stenosis. The patient also had a transthoracic echocardiogram, which showed normal ventricular function. The patient was monitored on telemetry and she did have evidence of PACs as well as PVCs. The patient was hypokalemic when she came in with the potassium of 3.1. With repletion, this was 3.5. The patient had a magnesium level of 1.9. The patient had orthostatic vital signs performed, which showed that her pulse did jump up to 100 when she stood up. Given the patient's history of feeling slightly lightheaded early on the day and dehydrated compounded by her elevated BUN and creatinine ratio and low electrolytes, it is likely that this episode happened from low blood pressure and/or dehydration. Currently, the patient takes 100 mg of Cozaar with 25 mg of hydrochlorothiazide. The patient was given IV fluids here and BUN and creatinine ratio improved. Her blood pressure this morning prior to any medications was 132/76. For this reason, Cozaar hydrochlorothiazide will be cut in half. In addition, I will give the patient a prescription for potassium if this will likely help with her PVCs and PACs. This will help her run a higher blood pressure and prevent these episodes from happening in the future. The patient was seen by Physical Therapy and was able to ambulate independently. Recommendation was for the patient to use a cane at all times. On 07/01/17, vitals are as follows: Temperature 92, heart rate 88, respiratory rate 16, blood pressure 118/66, and oxygen saturation 98%. At this point, the patient was stable for discharge. The patient was also found to have a thigh hematoma on presentation. The patient's aspirin was held on admission and the patient's hemoglobin was monitored overnight. Hemoglobin at the day of discharge was 10.6 and had remained stable for the last previous hours. The patient is stable to be discharged from this standpoint and should withhold her aspirin until further notice. DISCHARGE PLAN: The patient was discharged on a low salt diet. The patient has been instructed to stop her aspirin until seen by her primary care provider and take half of her blood pressure medicine daily. She also has been instructed to record her blood pressures daily and notify her physician if the systolic is higher than 150 consistently. I have reviewed all these instructions with the patient and she is agreeable with her discharge today. The patient is instructed to return to the hospital if she experiences any further syncopal episode. This is a summarized report of a complex medical history and hospital stay. For more details, please see the entire medical record. CONDITION ON DISCHARGE: Stable. NORMAN VICENTE NP [id number]/[facility] #: [id number] [place]
== END 2017-07-01 15:30 | disposition home or self-care (01) ==
LOC: ED 10:14 → MEDTELE 13:39
PROVIDERS: ADMIT Internal Medicine; ATTEND Internal Medicine
DX: R55 Syncope and collapse (principal); S70.12XA Contusion of left thigh, initial encounter; W19.XXXA Unspecified fall, initial encounter; Y92.9 Unspecified place or not applicable; I10 Essential (primary) hypertension; E03.9 Hypothyroidism, unspecified; E78.5 Hyperlipidemia, unspecified; I49.3 Ventricular premature depolarization; Z79.899 Other long term (current) drug therapy
CPT/HCPCS: 36415; 70450; 71020; 72125; 74176; 80048; 80053; 81003; 81015; 83605; 83735; 83880; 84443; 84484; 85014; 85018; 85025; 87086; 93005; 93306; 93880; 96360; 96361; 99284; A9270-GY; G0378; G8978-GP-CI; G8979-GP-CI; G8980-GP-CI

== ENCOUNTER 2023-10-01 19:35 | Observation (INO) ==
[2023-10-01 21:01] LABS: ABS Eosinophils 0.1 10^3/uL (0.0-0.5); ABS Lymphocytes 1.3 10^3/uL (1.0-4.8); ABS Monocytes 0.5 10^3/uL (0.0-0.9); ABS Nucleated RBC 0.01 10^3/ul; Eosinophil % 1.5 %; Hematocrit 37.3 % (35-45); Hemoglobin 13.1 g/dL (11.5-14.3); Lymphocyte % 21.7 %; Mean Corpuscular Hemoglobin 30.8 pg (27-33); Mean Corpuscular Volume 87.8 fL (80-97); Mean Platelet Volume 7.2 fL (7.5-11.2); Nucleated Red Blood Cells % 0.1 %/100WBC (0.0-0.8); Platelet Count 185 10^3/uL (150-450); Red Blood Count 4.24 10^6/uL (3.63-4.92); Red Cell Distribution Width 13.2 % (12-17); White Blood Count 5.9 10^3/uL (3.8-11.8)
[2023-10-01] MEDS: Ondansetron 4 mg VIAL 2 MG/ML 2 ml VIAL IV ONE (21:16)
[2023-10-01] MEDS: Lactated Ringers 1000 ml BAG 1,000 ML IV ONE (21:16)
[2023-10-01 21:25] LABS: High Sens Troponin Baseline 18 pg/mL (<15)
[2023-10-01 22:10] LABS: ALT 19 U/L (7-52); AST 21 U/L (13-39); Albumin 4.2 g/dL (3.2-5.2); Albumin/Globulin Ratio 1.9 (1-3); Alkaline Phosphatase 67 U/L (35-149); Anion Gap 11 mmol/L (2-16); Blood Urea Nitrogen 9 mg/dL (6-24); C Reactive Protein < 1.00 mg/L (<8.01); CO2 Carbon Dioxide 26 mmol/L (22-32); Calcium 9.3 mg/dL (8.6-10.3); Chloride 87 mmol/L (101-111); Creatinine, Serum 0.45 mg/dL (0.51-0.95); Globulin 2.2 g/dL (2-4); Glucose 120 mg/dL (70-100); Lipase 12 U/L (11.0-82.0); Magnesium 1.6 mg/dL (1.9-2.7); Potassium 2.8 mmol/L (3.5-5.0); Sodium 124 mmol/L (135-145); Total Bilirubin 0.8 mg/dL (0.2-1.0); Total Protein 6.4 g/dL (6.4-8.9); eGFR CKD-EPI 95.4 (>60)
[2023-10-01 22:13] LABS: High Sensitivity Troponin 1 Hr 20 pg/mL (<15)
[2023-10-01 23:04] LABS: TSH Ultra Thyroid Stim Horm 0.75 mcIU/mL (0.34-5.60)
[2023-10-01 23:05] LABS: Urine Appearance Clear; Urine Bilirubin Negative (Negative); Urine Blood 2+ (Negative); Urine Color Yellow; Urine Glucose Negative (Negative); Urine Ketones 2+ (Negative); Urine Nitrite Negative (Negative); Urine Protein Negative (Negative); Urine Specific Gravity 1.011 (1.002-1.030); Urine Urobilinogen Negative (Negative); Urine pH 6.5 (5.0-8.0)
[2023-10-01 23:06] LABS: Free T4 1.22 ng/dL (0.61-1.12)
[2023-10-01] MEDS: Potassium EFFERVES 25 meq TAB PO ONE (23:09)
[2023-10-01] MEDS: KCL 10 MEQ/50 ML IVPREMIX 10 MEQ/50 ML BAG IV SCH (23:12)
[2023-10-01 23:13] LABS: Urine Bacteria Absent /HPF (Absent); Urine Red Blood Cell 2+(6-10/hpf) /HPF (0-Trace); Urine Squamous Epithelial Cell Present /HPF (Absent); Urine White Blood Cell Absent /HPF (0-Trace)
[2023-10-02] MEDS: Magnesium Sulf 4 GM/100 ML IV 4,000 MG/100 ML BAG IVPB ONE (02:29)
[2023-10-02 03:16] LABS: Calcium 9.2 mg/dL (8.6-10.3); Creatinine, Serum 0.41 mg/dL (0.51-0.95); Potassium 3.8 mmol/L (3.5-5.0); eGFR CKD-EPI 97.6 (>60)
[2023-10-02] MEDS: NS 0.9% 1000 ml BAG 1,000 ML IV SCH (04:57)
[2023-10-02 06:25] LABS: ABS Eosinophils 0.1 10^3/uL (0.0-0.5); ABS Lymphocytes 1.7 10^3/uL (1.0-4.8); ABS Monocytes 0.5 10^3/uL (0.0-0.9); ABS Neutrophils 3.2 10^3/uL (1.5-7.6); ABS Nucleated RBC 0.01 10^3/ul; Eosinophil % 1.8 %; Hematocrit 33.6 % (35-45); Hemoglobin 12.1 g/dL (11.5-14.3); Lymphocyte % 29.9 %; Mean Corpuscular Hemoglobin 31.4 pg (27-33); Mean Corpuscular Hgb Conc 35.9 g/dL (31-36); Mean Corpuscular Volume 87.4 fL (80-97); Mean Platelet Volume 7.6 fL (7.5-11.2); Nucleated Red Blood Cells % 0.2 %/100WBC (0.0-0.8); Platelet Count 178 10^3/uL (150-450); Red Blood Count 3.85 10^6/uL (3.63-4.92); Red Cell Distribution Width 13.3 % (12-17); White Blood Count 5.6 10^3/uL (3.8-11.8)
[2023-10-02 07:17] LABS: Anion Gap 7 mmol/L (2-16); Blood Urea Nitrogen 7 mg/dL (6-24); CO2 Carbon Dioxide 30 mmol/L (22-32); Chloride 92 mmol/L (101-111); Creatinine, Serum 0.41 mg/dL (0.51-0.95); Glucose 98 mg/dL (70-100); Magnesium 2.9 mg/dL (1.9-2.7); Sodium 129 mmol/L (135-145); eGFR CKD-EPI 97.6 (>60)
[2023-10-02] MEDS: Enoxaparin 40 MG/0.4 ML SYR SUBCUT SCH (09:46)
[2023-10-02] MEDS: Potassium Chlor 20 meq TAB.ER PO ONE (11:02)
[2023-10-02] MEDS: KCL 20 MEQ/100 ML IVPREMIX 20 MEQ/100 ML BAG IV SCH (11:03)
[2023-10-02 12:15] LABS: Urine Osmo 131 mOsm/kg (150-1150)
[2023-10-02 16:16] LABS: Blood Urea Nitrogen 9 mg/dL (6-24); CO2 Carbon Dioxide 26 mmol/L (22-32); Calcium 8.3 mg/dL (8.6-10.3); Chloride 102 mmol/L (101-111); Creatinine, Serum 0.43 mg/dL (0.51-0.95); Glucose 114 mg/dL (70-100); Sodium 131 mmol/L (135-145); eGFR CKD-EPI 96.4 (>60)
[2023-10-02 16:17] LABS: Anion Gap 3 mmol/L (2-16)
[2023-10-02 18:11] VITALS: BP 149/91
[2023-10-02 18:14] LABS: Calcium 9.1 mg/dL (8.6-10.3); Creatinine, Serum 0.5 mg/dL (0.51-0.95); Potassium 4.1 mmol/L (3.5-5.0)
== END 2023-10-02 19:15 | disposition home or self-care (01) ==
LOC: ED 19:35 → EDHOLD 19:35 → SUATTDRO 10-02 00:54 → EDHOLD 10-02 07:19 → MED 10-02 13:24
PROVIDERS: ADMIT Hospitalist; ATTEND Internal Medicine

== ENCOUNTER 2024-01-27 12:09 | Observation (INO) ==
[2024-01-27 12:43] LABS: ABS Eosinophils 0.1 10^3/uL (0.0-0.5); ABS Lymphocytes 1.3 10^3/uL (1.0-4.8); ABS Monocytes 0.4 10^3/uL (0.0-0.9); ABS Neutrophils 2.5 10^3/uL (1.5-7.6); Eosinophil % 2.6 %; Hematocrit 34.4 % (35-45); Lymphocyte % 30.2 %; Mean Corpuscular Hemoglobin 31.2 pg (27-33); Mean Corpuscular Hgb Conc 34.8 g/dL (31-36); Mean Corpuscular Volume 89.8 fL (80-97); Mean Platelet Volume 7.3 fL (7.5-11.2); Nucleated Red Blood Cells % 0.1 %/100WBC (0.0-0.8); Platelet Count 191 10^3/uL (150-450); Red Blood Count 3.84 10^6/uL (3.63-4.92); Red Cell Distribution Width 13.4 % (12-17); White Blood Count 4.4 10^3/uL (3.8-11.8)
[2024-01-27 13:07] LABS: INR 0.96 (0.83-1.13)
[2024-01-27 13:30] LABS: Albumin 4.1 g/dL (3.2-5.2); Albumin/Globulin Ratio 1.8 (1-3); Calcium 9.8 mg/dL (8.6-10.3); Creatinine, Serum 0.53 mg/dL (0.51-0.95); Globulin 2.3 g/dL (2-4); Potassium 3.6 mmol/L (3.5-5.0); Total Bilirubin 0.6 mg/dL (0.2-1.0); Total Protein 6.4 g/dL (6.4-8.9); eGFR CKD-EPI 91.7 (>60)
[2024-01-27 15:04] LABS: High Sensitivity Troponin 1 Hr 10 pg/mL (<15)
[2024-01-27 16:08] LABS: TSH Ultra Thyroid Stim Horm 1.66 mcIU/mL (0.34-5.60)
[2024-01-27 16:10] LABS: Free T4 1.47 ng/dL (0.61-1.12)
[2024-01-27 16:48] LABS: Magnesium 1.9 mg/dL (1.9-2.7)
[2024-01-27] MEDS: Potassium Chlor 20 meq TAB.ER PO ONE (18:14)
[2024-01-27] MEDS: Heparin 5000 UNITS/ML 1 mL VIAL SUBCUT SCH (22:19)
[2024-01-28 00:40] LABS: Urine Appearance Clear; Urine Bilirubin Negative (Negative); Urine Blood 1+ (Negative); Urine Color Colorless; Urine Glucose Negative (Negative); Urine Ketones Negative (Negative); Urine Nitrite Negative (Negative); Urine Protein Negative (Negative); Urine Specific Gravity 1.004 (1.002-1.030); Urine Urobilinogen Negative (Negative)
[2024-01-28 00:43] LABS: Urine Bacteria Absent /HPF (Absent); Urine Red Blood Cell Trace(0-2/hpf) /HPF (0-Trace); Urine Squamous Epithelial Cell Present /HPF (Absent); Urine White Blood Cell Absent /HPF (0-Trace)
[2024-01-28 06:38] LABS: ABS Eosinophils 0.2 10^3/uL (0.0-0.5); ABS Lymphocytes 1.4 10^3/uL (1.0-4.8); ABS Monocytes 0.4 10^3/uL (0.0-0.9); ABS Neutrophils 1.8 10^3/uL (1.5-7.6); Eosinophil % 4.4 %; Hematocrit 34.9 % (35-45); Hemoglobin 12.1 g/dL (11.5-14.3); Lymphocyte % 37.3 %; Mean Corpuscular Hemoglobin 31.3 pg (27-33); Mean Corpuscular Hgb Conc 34.7 g/dL (31-36); Mean Corpuscular Volume 90.1 fL (80-97); Mean Platelet Volume 7.6 fL (7.5-11.2); Nucleated Red Blood Cells % 0.1 %/100WBC (0.0-0.8); Platelet Count 196 10^3/uL (150-450); Red Blood Count 3.88 10^6/uL (3.63-4.92); Red Cell Distribution Width 13.3 % (12-17); White Blood Count 3.8 10^3/uL (3.8-11.8)
[2024-01-28 07:44] LABS: Calcium 9.5 mg/dL (8.6-10.3); Creatinine, Serum 0.49 mg/dL (0.51-0.95); Magnesium 2.1 mg/dL (1.9-2.7); Potassium 3.7 mmol/L (3.5-5.0); eGFR CKD-EPI 93.5 (>60)
[2024-01-28] MEDS: NS 0.9% 1000 ml BAG 1,000 ML IV SCH (09:29)
[2024-01-28] MEDS: Potassium Chlor 20 meq TAB.ER PO ONE (09:30)
[2024-01-28] MEDS ORDERED: Midazolam 5 mg/5 ml VIAL 1 mg/ml 5 ml VIAL (5 mg) ONE (11:03)
[2024-01-28] MEDS ORDERED: Heparin 1,000 UNIT/ML 10 ml (10,000 UNITS) CATHLAB/DIALYSIS ONE (11:04)
[2024-01-28] MEDS ORDERED: Heparin 2 UNITS/ML 1000 mls 2,000 ML IV ONE (11:04)
[2024-01-28] MEDS ORDERED: nitroGLYCERIN DRIP 25,000 MCG/250 ML BTL ONE (11:04)
[2024-01-28] MEDS ORDERED: fentaNYL 100 mcg/2 ml 50 MCG/ML VIAL ONE (11:04)
[2024-01-28] MEDS ORDERED: niCARdipine 0.1MG/ML IVPREMIX 20 MG/200 ML BAG IV ONE (11:05)
[2024-01-28] MEDS ORDERED: Iohexol 350 (CONTRAST) 200 ML MDV IV ONE (11:05)
[2024-01-28] MEDS ORDERED: Lidocaine 1% MPF 5 ML VIAL ONE (11:05)
[2024-01-28] MEDS ORDERED: Heparin 2 UNITS/ML 1000 mls 1,000 ML IV ONE (11:15)
[2024-01-28] MEDS ORDERED: Naloxone 0.4 mg VIAL 0.4 mg/ml 1 ml VIAL IV PUSH PRN (11:17)
[2024-01-28] MEDS ORDERED: Flumazenil 0.5 mg/5 ml 0.1 MG/ML 5 ml VIAL IV PRN (11:17)
[2024-01-28] MEDS ORDERED: Iohexol 350 (CONTRAST) 100 ML PAK IV ONE (11:57)
[2024-01-28] MEDS: fentaNYL 100 mcg/2 ml 50 MCG/ML VIAL IV SLOW PU ONE (12:34)
[2024-01-28] MEDS: Midazolam 10 mg/10 ml VIAL 1 mg/ml 10 ml VIAL (10 mg) IV SLOW PU ONE (12:34)
[2024-01-28] MEDS: CMCS: Simvastatin 10 mg TAB (NF) PO SCH (17:36)
[2024-01-29 07:05] LABS: Calcium 9.2 mg/dL (8.6-10.3); Creatinine, Serum 0.52 mg/dL (0.51-0.95); Magnesium 1.9 mg/dL (1.9-2.7); Potassium 3.9 mmol/L (3.5-5.0); eGFR CKD-EPI 92.1 (>60)
[2024-01-29 15:27] VITALS: BP 127/73
[2024-01-31 09:37] LABS: Anaplasma phagocytophilum Negative (Negative); B. miyamotoi PCR, B Negative (Negative); Babesia divergens/MO-1 Negative (Negative); Babesia ducani Negative (Negative); Ehrlichia chaffeensis Negative (Negative); Ehrlichia ewingii/canis Negative (Negative); Ehrlichia muris eauclairensis Negative (Negative)
== END 2024-01-29 17:10 | disposition home or self-care (01) ==
LOC: ED 12:09 → EDHOLD 12:09 → SUATTDRO 17:23 → MEDTELE 18:26
PROVIDERS: ADMIT Family Medicine; ATTEND Student in an Organized Health Care Education/Training Program